=== PATIENT | female | born 1950 | race Caucasian/White ===

== ENCOUNTER → 2017-03-25 | Outpatient (CLI) | payer MEDICARE, BC | LOC: MAMMO 10:25 | DX: Z12.31 Encounter for screening mammogram for malignant neoplasm of breast (principal) | CPT/HCPCS: G0202 ==

== ENCOUNTER → 2017-04-29 | Outpatient (CLI) | payer MEDICARE, BC | LOC: LAB 15:42 | DX: M79.675 Pain in left toe(s) (principal); M25.475 Effusion, left foot; M25.572 Pain in left ankle and joints of left foot ==

== ENCOUNTER → 2018-05-12 | Outpatient (CLI) | payer MEDICARE, BC | LOC: MAMMO 10:33 | DX: Z12.31 Encounter for screening mammogram for malignant neoplasm of breast (principal) ==

== ENCOUNTER 2020-03-16 10:37 | Emergency (ER) | payer MEDICARE, BC ==
[2020-03-16] MEDS ORDERED: LOSARTAN POTAS100 MG PO (11:22)
[2020-03-16] MEDS ORDERED: METFORMIN HYD1000 MG PO (11:22)
[2020-03-16] MEDS ORDERED: TIROSINT175 MCG PO (11:22)
[2020-03-16] MEDS ORDERED: PANTOPRAZOLE SO40 MG PO (11:22)
[2020-03-16] MEDS ORDERED: NORVASC 10MG10 MG PO (11:22)
[2020-03-16] MEDS ORDERED: ALLOPURINOL300 M1 PO (11:23)
[2020-03-16 11:27] LABS: ALBUMIN 4.3 g/dL (3.4-4.8); POTASSIUM 4.2 mmol/L (3.5-5.1); SODIUM 139 mmol/L (136-145)
[2020-03-16 11:29] LABS: CALCIUM 9.3 mg/dL (8.3-10.5)
[2020-03-16 11:30] LABS: GLUCOSE 179 mg/dL (65-105); TOTAL PROTEIN 7.1 g/dL (6.2-8.1)
[2020-03-16 11:32] LABS: TOTAL BILIRUBIN 0.5 mg/dL (0.2-1.2)
[2020-03-16 11:34] LABS: MEAN PLATELET VOLUME 9.5 fl (7.4-10.4); PLATELET COUNT 320 K/mm3 (130-400); RED BLOOD COUNT 2.94 M/mm3 (4.10-5.30); WHITE BLOOD COUNT 3.7 K/mm3 (4.8-10.8)
[2020-03-16 11:35] LABS: AST-SGOT 21 U/L (5-34)
[2020-03-16 11:36] LABS: ALT/SGPT 19 U/L (0-55)
[2020-03-16 12:00] LABS: HEMATOCRIT 18.6 % (37.0-47.0); MEAN CELL VOLUME 63 fl (78-100); MEAN CORPUSCULAR HEMOGLOBIN 17 pg (27-31); MEAN CORPUSCULAR HGB CONC 27 g/dL (33-37); RED CELL DISTRIBUTION WIDTH 18.1 % (11.5-14.5)
[2020-03-16 12:02] LABS: CARBON DIOXIDE 12 mmol/L (23-31)
[2020-03-16 12:04] LABS: D-DIMER 0.39 mg/L FEU (0.15-0.50)
[2020-03-16 12:20] LABS: LYMPHOCYTE 30 % (20-51); MONOCYTE 3 % (3-10); NEUTROPHILS 62 % (42-75)
[2020-03-16 12:21] LABS: HYPOCHROMIA 2+; MICROCYTOSIS 2+
[2020-03-16 12:49] LABS: TROPONIN-I < 0.03 ng/mL (<0.030)
[2020-03-16 13:46] VITALS: BP 166/57
== END 2020-03-16 13:40 | disposition short-term general hospital (02) ==
LOC: ED 10:37
PROVIDERS: Nurse Practitioner Family
DX: D64.9 Anemia, unspecified (principal); K92.2 Gastrointestinal hemorrhage, unspecified; I10 Essential (primary) hypertension; K21.9 Gastro-esophageal reflux disease without esophagitis; E11.9 Type 2 diabetes mellitus without complications; E78.5 Hyperlipidemia, unspecified; I25.2 Old myocardial infarction; Z90.89 Acquired absence of other organs; Z90.710 Acquired absence of both cervix and uterus; Z87.891 Personal history of nicotine dependence; Z95.9 Presence of cardiac and vascular implant and graft, unspecified; Z79.84 Long term (current) use of oral hypoglycemic drugs
CPT/HCPCS: C9113; J7030

== ENCOUNTER → 2020-03-31 | Outpatient (CLI) | payer MEDICARE, BC ==
[2020-03-16 13:46] VITALS: BP 166/57
[~2020-03-31] MED LIST: ALLOPURINOL300 M1 PO; LOSARTAN POTAS100 MG PO; METFORMIN HYD1000 MG PO; NORVASC 10MG10 MG PO; PANTOPRAZOLE SO40 MG PO; TIROSINT175 MCG PO
== END ==
LOC: LAB 10:43
DX: D50.9 Iron deficiency anemia, unspecified (principal)

== ENCOUNTER → 2020-04-27 | Outpatient (CLI) | payer MEDICARE, BC | LOC: MAMMO 09:07 | DX: Z12.31 Encounter for screening mammogram for malignant neoplasm of breast (principal) ==

== ENCOUNTER → 2020-09-05 | Outpatient (CLI) | payer MEDICARE, BC | LOC: RAD 08:25 | DX: M48.061 Spinal stenosis, lumbar region without neurogenic claudication (principal); M51.36 Other intervertebral disc degeneration, lumbar region; N28.89 Other specified disorders of kidney and ureter ==

== ENCOUNTER → 2020-09-15 | Outpatient (CLI) | payer MEDICARE, BC ==
[2020-09-15 09:25] LABS: POTASSIUM 4.8 mmol/L (3.5-5.1)
[2020-09-15 09:26] LABS: CALCIUM 9.9 mg/dL (8.3-10.5)
== END ==
LOC: RAD 09-11 09:59
PROVIDERS: Physician Assistant
DX: K74.60 Unspecified cirrhosis of liver (principal); D73.2 Chronic congestive splenomegaly; I31.3 Pericardial effusion (noninflammatory)
CPT/HCPCS: Q9965; Q9967

== ENCOUNTER → 2020-10-31 | Outpatient (CLI) | payer MEDICARE, BC ==
[2020-10-31 14:00] LABS: EOS # 0.1 (0.04-0.40); EOS % 2.6 % (1.0-5.0); HEMATOCRIT 38.3 % (37.0-47.0); HEMOGLOBIN 12.7 g/dL (12.5-16.0); LYMPH# 1.9 (1.50-4.00); MEAN CELL VOLUME 91 fl (78-100); MEAN CORPUSCULAR HEMOGLOBIN 30 pg (27-31); MEAN CORPUSCULAR HGB CONC 33 g/dL (33-37); MEAN PLATELET VOLUME 9.8 fl (7.4-10.4); MONO # 0.3 (0.20-0.80); PLATELET COUNT 184 K/mm3 (130-400); RED BLOOD COUNT 4.23 M/mm3 (4.10-5.30); RED CELL DISTRIBUTION WIDTH 13.3 % (11.5-14.5); WHITE BLOOD COUNT 5.4 K/mm3 (4.8-10.8)
[2020-10-31 14:06] LABS: POTASSIUM 4.7 mmol/L (3.5-5.1)
[2020-10-31 14:07] LABS: ALBUMIN 4.5 g/dL (3.4-4.8)
[2020-10-31 14:08] LABS: CALCIUM 9.9 mg/dL (8.3-10.5)
[2020-10-31 14:09] LABS: TOTAL PROTEIN 7.8 g/dL (6.2-8.1)
[2020-10-31 14:11] LABS: TOTAL BILIRUBIN 0.6 mg/dL (0.2-1.2)
[2020-10-31 14:15] LABS: PARTIAL THROMBOPLASTIN TIME 24.9 SECONDS (21.0-32.0); PROTHROMBIN TIME 11.7 SECONDS (9.0-12.0)
== END ==
LOC: LAB 12:50
PROVIDERS: Physician Assistant
DX: Z01.818 Encounter for other preprocedural examination (principal); E78.5 Hyperlipidemia, unspecified; E11.9 Type 2 diabetes mellitus without complications; E03.9 Hypothyroidism, unspecified

== ENCOUNTER → 2021-01-24 | Outpatient (CLI) | payer MEDICARE, BC | LOC: LAB 11:34 | PROVIDERS: Urology | DX: C64.2 Malignant neoplasm of left kidney, except renal pelvis (principal) ==

== ENCOUNTER → 2021-03-26 | Outpatient (CLI) | payer MEDICARE, BC | LOC: LAB 10:59 | DX: E03.9 Hypothyroidism, unspecified (principal) ==

== ENCOUNTER → 2021-07-18 | Outpatient (CLI) | payer MEDICARE, BC ==
[2021-07-18 11:50] LABS: ALBUMIN 4.2 g/dL (3.4-4.8); POTASSIUM 4.6 mmol/L (3.5-5.1)
[2021-07-18 11:53] LABS: TOTAL PROTEIN 7.4 g/dL (6.2-8.1)
[2021-07-18 11:55] LABS: TOTAL BILIRUBIN 0.4 mg/dL (0.2-1.2)
== END ==
LOC: LAB 11:13
PROVIDERS: Nurse Practitioner Family
DX: E11.29 Type 2 diabetes mellitus with other diabetic kidney complication (principal); E89.0 Postprocedural hypothyroidism; R80.9 Proteinuria, unspecified

== ENCOUNTER → 2021-07-31 | Outpatient (CLI) | payer MEDICARE, BC | LOC: LAB 12:02 | DX: E11.29 Type 2 diabetes mellitus with other diabetic kidney complication (principal); R80.9 Proteinuria, unspecified ==

== ENCOUNTER → 2021-11-21 | Outpatient (CLI) | payer MEDICARE, BC | LOC: LAB 10:13 | DX: E03.9 Hypothyroidism, unspecified (principal); E11.69 Type 2 diabetes mellitus with other specified complication; E66.9 Obesity, unspecified ==